=== PATIENT | male | born 1995 | race Caucasian/White ===

== ENCOUNTER → 2022-01-03 | Outpatient (CLI) | payer OTHER ==
--- NOTE | 2022-01-04 10:06 | US ---
EXAMINATION TYPE: US scrotum with doppler. DATE OF EXAM: 01/03/2022 COMPARISON: NONE CLINICAL HISTORY: 26-year-old male N50.89 OTHER SPECIFIED DISORDERS. TECHNIQUE: Grayscale and color Doppler Duplex imaging performed of the scrotum. FINDINGS: EXAM MEASUREMENTS: TESTICLES: Right Testicle: 4.7 x 3.2 x 3.0 cm Left Testicle: 4.9 x 3.0 x 3.5 cm. Both testicles show normal homogeneous appearance and symmetric size. Doppler performed to assess for testicular vascularity; good bilateral color flow and waveforms are s een. There is no evidence of testicular torsion. EPIDIDYMIS HEAD: Right Epididymis: 1.6 cm Left Epididymis: 1.8 cm Left epididymis: 1.1 x 1.0 x 1.0cm hypoechoic area Presence of hydroceles: no Presence of varicoceles: no IMPRESSION: 1. No sonographic evidence for testicular torsion or epididymoorchitis. 2. A 1.1 cm round hypoechoic lesion involving the left epididymal head. This could represent a debris -filled cyst or spermatocele. Other lesions such as an adenomatoid tumor. Consider urology evaluation and close surveillance follow-up.
--- NOTE | 2022-01-04 11:18 | US ---
EXAMINATION TYPE: US kidneys/renal and bladder DATE OF EXAM: 01/03/2022 COMPARISON: NONE CLINICAL HISTORY: 26-year-old male N50.89 OTHER SPECIFIED DISORDERS. Pelvic pain TECHNIQUE: Multiple sonographic images of the kidneys and bladder are seen. FINDINGS: EXAM MEASUREMENTS: Right Kidney: 10.9 x 4.7 x 5.1 cm Left Kidney: 9.8 x 5.2 x 4.3 cm Right Kidney: No hydronephrosis or masses seen Left Kidney: No hydronephrosis or masses seen Bladder: wnl Bilateral Jets seen: Yes IMPRESSION: No hydronephrosis or other specific sonographic abnormality.
== END | disposition home or self-care (01) ==
LOC: RADUSWWP 12-27 15:25
PROVIDERS: ATTEND Family Medicine
DX: N50.89 Other specified disorders of the male genital organs (principal); R10.2 Pelvic and perineal pain
CPT/HCPCS: 76770; 76870; 93975

== ENCOUNTER → 2023-06-26 | Outpatient (CLI) | payer OTHER ==
--- NOTE | 2023-06-26 16:54 | US ---
EXAMINATION TYPE: US scrotum with doppler. Grayscale and color Doppler Duplex imaging performed of jennifer cantu scrotum. DATE OF EXAM: 06/26/2023 COMPARISON: 01/03/2022 CLINICAL INDICATION: Male, 27 years old with history of N50.89 OTHER SPECIFIED DISORDERS OF THE MALE GENIT; Hx Left Epididymus pathology - see prior report EXAM MEASUREMENTS: TESTICLES: Right Testicle: 4.6 x 2.5 x 3.5 cm Left Testicle: 5.3 x 2.4 x 3.1 cm EPIDIDYMIS HEAD: Right Epididymis: 1.5 x 0.8 x 1.0 cm Left Epididymis: 1.5 x 1.2 x 1.9 cm; pathology not redemonstrated. Doppler performed to assess for testicular vascularity; good bilateral color flow and waveforms are s een. There is no evidence of testicular torsion. Presence of hydroceles: No Presence of varicoceles: No IMPRESSION: 1. No evidence of testicular torsion or mass. 2. Previously seen left epididymal head hypoechoic lesion is not definitely visualized on today's exa m and may represent a resolved cyst.
== END | disposition home or self-care (01) ==
LOC: RADUSWWP 15:33
PROVIDERS: ATTEND Urology
DX: N50.89 Other specified disorders of the male genital organs (principal)
CPT/HCPCS: 76870; 93975